=== PATIENT | female | born 1950 | race Caucasian/White ===

== ENCOUNTER 2017-02-07 19:31 | Inpatient (IN) | payer OTHER ==
[2017-02-07] MEDS: D5 NS IV ONE ×2 (19:49)
[2017-02-07] MEDS ORDERED: D5 NS 1,000 ML IV ONE (19:50)
--- NOTE | 2017-02-07 20:01 | PROVIDER DOCUMENTATION ---
HPI-Psychological Disorder - General Chief Complaint: Altered Mental Status Stated Complaint: low blood sugar Time Seen by Provider: 02/07/17 19:40 Source: patient Allergies/Adverse Reactions: Patient Allergies Allergy/AdvReac Type Severity Reaction Status Date / Time No Known Allergies Allergy Verified 02/07/17 21:05 Home Medications: Home Medication List Medication Instructions Recorded Confirmed Last Taken Type Alendronate [Fosamax] 70 mg PO Q7D 06/17/16 02/07/17 01/31/17 09:00 History Aspirin 81 mg PO DAILY 06/17/16 02/07/17 02/07/17 09:00 History Calcium Citrate/Vitamin D3 1 each PO TID 06/17/16 02/07/17 02/07/17 09:00 History [Calcium Citrate - Vit D3 Tab] Carvedilol 25 mg PO BID 06/17/16 02/07/17 02/07/17 09:00 History Ezetimibe [Zetia] 10 mg PO DAILY 06/17/16 02/07/17 02/07/17 09:00 History Glipizide 10 mg PO BID 06/17/16 02/07/17 02/07/17 09:00 History Insulin Glargine [Lantus] 45 unit SUBQ QHS 06/17/16 02/07/17 02/06/17 21:00 History Losartan [Cozaar] 100 mg PO DAILY 06/17/16 02/07/17 02/06/17 09:00 History Nitroglycerin [Nitroglycerin 1 each TD DAILY 06/17/16 02/07/17 02/05/17 09:00 History 0.1MG/Hr] Pioglitazone HCl 45 mg PO DAILY 06/17/16 02/07/17 02/06/17 09:00 History Psyllium Husk [Metamucil] 2 each PO TID 06/17/16 02/07/17 02/06/17 20:00 History Rosuvastatin Calcium [Crestor] 40 mg PO HS 06/17/16 02/07/17 02/06/17 20:00 History Amlodipine Besylate [Norvasc] 5 mg PO DAILY 10/07/16 02/07/17 02/07/17 09:00 History Ranolazine E.r. [Ranexa] 1,000 mg PO BID 02/07/17 02/07/17 02/07/17 09:00 History - History of Present Illness-Psych Nature of Presenting Problem: Pt is a 66 yof who presents to ER via EMS after being found unresponsive at home by family. Per EMS, pt's blood sugar was 31. On exam, pt was moderately diaphoretic, lethargic, and ill-appearance. Onset/Duration: reports: just prior to arrival Timing: reports: improving Severity: reports: severe Psychiatric Complaints: reports: altered mental status, other (unresponsive) Substance Use: reports: none/never Previous psych related hospitalizations?: No Patient arrived by:: EMS called by spouse/family Review of Systems - Adult - REVIEW OF SYSTEMS - ADULT Constitutional: reports: fatique. denies: chills, fever, night sweats, weight gain, weight loss Eyes: reports: no symptoms reported Ears, Nose, Mouth & Throat: reports: no symptoms reported Cardiovascular: reports: syncope. denies: chest pain, edema, heart murmur, irregular heart rate, orthopnea, palpitations, poor circulation, PND Respiratory: denies: chronic cough, cough, dyspnea on exertion, excessive sputum production, hemoptysis, pleurisy, shortness of breath, wheezing Gastrointestinal: reports: no symptoms reported Genitourinary: reports: no symptoms reported Musculoskeletal: reports: no symptoms reported Integumentary: reports: no symptoms reported Neurological: reports: no symptoms reported Psychiatric: reports: no symptoms reported Endocrine: reports: excessive sweating. denies: change in skin pigment, goiter , cold intolerance, heat intolerance, increased hunger, increased thirst, polyuria Hematologic/Lymphatic: reports: no symptoms reported Allergic/Immunologic: reports: no symptoms reported All Other Systems: Reviewed and Negative Past History - Adult - PAST MEDICAL HISTORY-ADULT Review of Records: reports: Nursing Assessment Review, Medications Reviewed Endocrine/Immune: reports: Diabetes Diabetes Type: Type 1 - IMMUNIZATION STATUS Childhood Immunizations: See Nurse Assessment Flu Vaccine: See Nurse Assessment Physical Exam-Psych Focus - Physical Exam-Psych Initial Vital Signs Reviewed: Yes Appearance: appropriate appearance, appropriate insight, neat, no memory impairment, alert, disheveled, lethargic, moderate distress, slow to respond. negative: no apparent distress, denies illness, anxious, combative, impaired insight, impaired recent memory, impaired remote memory, mild distress, severe distress Neurological: alert, calm, assistant front desk manager II-XII nml as tested, oriented x 3, responds to pain, depressed affect. negative: normal mood/affect, agitated, anxious, disoriented x 3, flat, no response to pain, withdraws to pain Respiratory: chest non-tender, lungs clear, normal breath sounds. negative: respiratory distress, decreased breath sounds, accessory muscle use, wheezing Cardiovascular: normal peripheral pulses, regular rate, rhythm. negative: bradycardia, tachycardia, irregularly irregular Abdominal Exam: normal bowel sounds, non tender, soft, no organomegaly, no pulsatile mass. negative: abnormal bowel sounds, distended, tenderness, mass Integumentary: normal color, normal turgor, diaphoresis. negative: warm/dry Progress - PLAN OF CARE/RESULTS Progress/Plan/Lab Results: Vital Signs - 24 hr 02/07/17 02/07/17 02/07/17 19:49 20:24 21:11 Temperature 91.7 F L Pulse Rate 77 70 67 Respiratory 21 19 16 Rate Blood Pressure 130/68 173/70 141/50 O2 Sat by Pulse 98 100 100 Oximetry Orders Category Date Time Status Cardiac Monitoring DIRECTED Care 02/07/17 19:51 Active Finger Stick Blood Sugar (ED) DIRECTED Care 02/07/17 19:51 Active Wilkerson Cath Insertion ORDERED Care 02/07/17 21:01 Active Oxygen Therapy- ED Nursing DIRECTED Care 02/07/17 19:51 Active Saline Loc NOW Care 02/07/17 19:51 Active CHEST-PORTABLE [RAD] Stat Exams 02/07/17 19:51 Taken HEAD W/O CONTRAST [CT] Stat Exams 02/07/17 19:52 Taken ABG [RESP] Routine Lab 02/07/17 20:20 Completed BLOOD CULTURE [BLDCUL] Stat Lab 02/07/17 20:21 Results CBC WITH ELECTRONIC DIFF [HEME] Stat Lab 02/07/17 20:06 Completed CK PROFILE [SP CHEM] Stat Lab 02/07/17 20:06 Completed COMPREHENSIVE METABOLIC PANEL [CHEM] Stat Lab 02/07/17 20:06 Completed LACTATE, PLASMA [CHEM] Stat Lab 02/07/17 20:06 Completed PROTIME WITH INR [COAG] Stat Lab 02/07/17 20:06 Completed PTT [COAG] Stat Lab 02/07/17 20:06 Completed TROPONIN T Stat Lab 02/07/17 20:06 Completed TSH Stat Lab 02/07/17 20:06 Completed URINALYSIS W/POSS RFLX CULT [URINALYSIS] Stat Lab 02/07/17 20:57 Results URINE DRUG SCREEN Stat Lab 02/07/17 20:57 Received URINE MANUAL MICROSCOPIC [URINALYSIS] Stat Lab 02/07/17 20:57 Results CefTRIAXONE 1 GM/NS [Rocephin 1 gm/Ns] 50 ml Med 02/07/17 21:13 Active IV NOW Dextrose 5%-0.9% NaCl Inj [D5 Ns] 1,000 ml Med 02/07/17 19:50 Active IV 50 mls/hr Dextrose 5%-0.9% NaCl Inj [D5 Ns] 250 ml Med 02/07/17 19:49 Active IV 50 mls/hr Dextrose 5%-0.9% NaCl Inj [D5 Ns] 500 ml Med 02/07/17 21:14 Active IV 50 mls/hr Pulse Oximetry Stat Oth 02/07/17 19:51 Active EKG [EKG] Stat Ther 02/07/17 19:37 Ordered EKG [EKG] Stat Ther 02/07/17 19:51 Ordered Laboratory Tests 02/07/17 02/07/17 02/07/17 20:06 20:06 20:06 WBC 8.73 RBC 3.57 L Hgb 10.8 L Hct 34.0 L MCV 95.2 MCH 30.3 MCHC 31.8 L RDW Std Deviation 14.1 Plt Count 372 MPV 9.7 Immature Gran % (Auto) 1.0 H Neut % (Auto) 62.9 Lymph % (Auto) 25.2 Door % (Auto) 7.0 Eos % (Auto) 2.9 Baso % (Auto) 1.0 H Immature Gran # (Auto) 0.09 H Neut # (Auto) 5.49 Lymph # (Auto) 2.20 Door # (Auto) 0.61 H Eos # (Auto) 0.25 Baso # (Auto) 0.09 PT INR PTT (Actin FS) Specimen Type Sample Site pH pCO2 pO2 HCO3 Base Excess Kenneth Test A-a O2 Difference Total Hemoglobin Lactate Liter Flow Blood Gas Modality FiO2 % Sodium 138 Potassium 3.6 Chloride 99 Carbon Dioxide 21 L Anion Gap 18 BUN 27 H Creatinine 1.7 H Estimated GFR/1.73 m2 30 BUN/Creatinine Ratio 16 Glucose 74 Calculated Osmolality 279 Calcium 9.2 Total Bilirubin 0.21 AST 15 ALT 11 Alkaline Phosphatase 88 Creatine Kinase 39 Troponin T Total Protein 7.9 Albumin 3.6 Globulin 4.3 Albumin/Globulin Ratio 0.8 Plasma Lactate TSH 4.37 H Urine Source Urine Color Urine Turbidity Urine pH Ur Specific [place] Urine Protein Ur Glucose (Stick) Ur Ketones (Stick) Urine Blood Urine Nitrite Urine Bilirubin Urobilinogen Dipstick Urine Leukocytes Urine WBC (Auto) Urine RBC (Auto) U Epithel Cells (Auto) Urine Bacteria (Auto) 02/07/17 02/07/17 02/07/17 20:06 20:06 20:06 WBC RBC Hgb Hct MCV MCH MCHC RDW Std Deviation Plt Count MPV Immature Gran % (Auto) Neut % (Auto) Lymph % (Auto) Door % (Auto) Eos % (Auto) Baso % (Auto) Immature Gran # (Auto) Neut # (Auto) Lymph # (Auto) Door # (Auto) Eos # (Auto) Baso # (Auto) PT 10.4 INR 1.02 PTT (Actin FS) 26.9 Specimen Type Sample Site pH pCO2 pO2 HCO3 Base Excess Kenneth Test A-a O2 Difference Total Hemoglobin Lactate Liter Flow Blood Gas Modality FiO2 % Sodium Potassium Chloride Carbon Dioxide Anion Gap BUN Creatinine Estimated GFR/1.73 m2 BUN/Creatinine Ratio Glucose Calculated Osmolality Calcium Total Bilirubin AST ALT Alkaline Phosphatase Creatine Kinase Troponin T < 0.010 Total Protein Albumin Globulin Albumin/Globulin Ratio Plasma Lactate 2.0 TSH Urine Source Urine Color Urine Turbidity Urine pH Ur Specific [place] Urine Protein Ur Glucose (Stick) Ur Ketones (Stick) Urine Blood Urine Nitrite Urine Bilirubin Urobilinogen Dipstick Urine Leukocytes Urine WBC (Auto) Urine RBC (Auto) U Epithel Cells (Auto) Urine Bacteria (Auto) 02/07/17 02/07/17 20:20 20:57 WBC RBC Hgb Hct MCV MCH MCHC RDW Std Deviation Plt Count MPV Immature Gran % (Auto) Neut % (Auto) Lymph % (Auto) Door % (Auto) Eos % (Auto) Baso % (Auto) Immature Gran # (Auto) Neut # (Auto) Lymph # (Auto) Door # (Auto) Eos # (Auto) Baso # (Auto) PT INR PTT (Actin FS) Specimen Type ARTERIAL Sample Site R BRACHIAL pH 7.42 pCO2 42 pO2 82 HCO3 26.8 H Base Excess 2.4 Kenneth Test YES A-a O2 Difference 15.0 Total Hemoglobin < 3.0 L Lactate 1.10 Liter Flow 0.0 Blood Gas Modality ROOM AIR FiO2 % 21.0 Sodium Potassium Chloride Carbon Dioxide Anion Gap BUN Creatinine Estimated GFR/1.73 m2 BUN/Creatinine Ratio Glucose Calculated Osmolality Calcium Total Bilirubin AST ALT Alkaline Phosphatase Creatine Kinase Troponin T Total Protein Albumin Globulin Albumin/Globulin Ratio Plasma Lactate TSH Urine Source CATH Urine Color STRAW Urine Turbidity CLEAR Urine pH 7.0 Ur Specific [place] 1.007 Urine Protein 50 A Ur Glucose (Stick) 100 A Ur Ketones (Stick) NEGATIVE Urine Blood MODERATE A Urine Nitrite NEGATIVE Urine Bilirubin NEGATIVE Urobilinogen Dipstick NORMAL Urine Leukocytes NEGATIVE Urine WBC (Auto) <10 Urine RBC (Auto) TNTC A U Epithel Cells (Auto) <10 Urine Bacteria (Auto) NEGATIVE - EKG 1 Time of EKG reading by physician:: 19:40 EKG Read and Signed by:: Juan Carlos Barbosa EKG Interpretation (*Must complete 3 of following elements*): Abnormal (Lateral infarct, age undetermined; Possible inferior infarct, age undetermined) Rate: 76 Rhythm: NSR - XRAY 1 XRAY: Bilateral XRAY Study: Chest Impression: See EMR Report XRAY Interpretation: Negative - CT/MRI 1 CT Study: Head Impression: See EMR Report CT Results: Negative - CONSULTS/PCP/HOSPITALIST Notification #1 *Consult/PCP/Hospitalist*: Dr. Mancia (hospitalist) Time Discussed: 21:15 Consult Disposition: Admit Departure - Departure Time of Disposition Order: 21:15 DIAGNOSIS: Hypoglycemia Hypothermia Qualifiers: Encounter type: initial encounter Qualified Code(s): T68.XXXA - Hypothermia, initial encounter Altered mental status Qualifiers: Altered mental status type: unspecified Qualified Code(s): R41.82 - Altered mental status, unspecified Disposition: ADMITTED INPATIENT 09 Certified Medical Emergency: Emergent Condition: Stable Referrals: Heber Guerra Jr, MD [Primary Care Provider] - Attestation - Scribe Verification/Attestation Scribe:: Curtis Balderas Acting as Scribe for:: Jua nCarlos Barbosa Scribe documention review:: This chart was documented by a scribe and accurately reflects the service the provider performed and the decisions made by the provider.
[2017-02-07 20:26] LABS: MANUAL DIFF NEEDED? NO
[2017-02-07 20:31] LABS: EOS# 0.25 X1000 (0.0-0.7); EOS% 2.9 % (0.0-10.0); HEMOGLOBIN 10.8 g/dL (12.0-16.0); IMM GRAN# 0.09 X1000 (0.0-0.04); LYMPH% 25.2 % (20.5-51.1); MCH 30.3 PG (27-31); MCHC 31.8 g/dL (33-37); MCV 95.2 FL (81-99); MONO# 0.61 X1000 (0.11-0.59); MPV 9.7 FL (7.4-10.4); NEUT% 62.9 % (42.2-75.2); PLT 372 X1000 (130-400); RBC 3.57 XMIL (4.2-5.4)
[2017-02-07 20:33] LABS: ALLEN TEST YES; BE 2.4 mmoll (-3.0-3.0); BLOOD TYPE ARTERIAL; DRAW SITE R BRACHIAL; PCO2(98.6) 42 mmHg (35-45); PO2(98.6) 82 mmHg (60-100); SAMPLE BLOOD; THB < 3.0 g/dL (11.5-17.4); pH(98.6) 7.42 (7.35-7.45)
[2017-02-07 20:34] LABS: MODALITY ROOM AIR
[2017-02-07 20:47] LABS: ALBUMIN 3.6 g/dL (3.5-5.0); CALCIUM 9.2 mg/dL (8.8-10.2); POTASSIUM 3.6 mmol/L (3.5-5.1); TOTAL BILIRUBIN 0.21 mg/dL (0.20-1.00); TOTAL PROTEIN 7.9 g/dL (6.3-8.3)
[2017-02-07 21:03] LABS: INR 1.02; PROTIME 10.4 Seconds (9.2-11.7); PTT 26.9 Seconds (22.0-36.0)
[2017-02-07 21:11] LABS: URINE CULTURE NEEDED? NO; URINE SOURCE CATH
[2017-02-07] MEDS ORDERED: ROCEPHIN 1 GM/NS 50 ML IV ONE (21:13)
[2017-02-07] MEDS ORDERED: D5 NS 500 ML IV ONE (21:14)
[2017-02-07 21:17] LABS: BILIRUBIN URINE NEGATIVE (NEGATIVE); BLOOD URINE MODERATE (NEGATIVE); COLOR STRAW; GLUCOSE URINE 100 mg/dL (NEGATIVE); LEUKOCYTES URINE NEGATIVE (NEGATIVE); NITRITE URINE NEGATIVE (NEGATIVE); PROTEIN URINE 50 mg/dL (NEGATIVE); SP GRAVITY URINE 1.007; TURBIDITY URINE CLEAR (CLEAR); UROBILINOGEN URINE NORMAL (NORMAL)
[2017-02-07 21:18] LABS: URINE MICRO REVIEW NEEDED? YES
[2017-02-07 21:23] LABS: UR EPITHELIAL CELLS <10 /HPF (<10); URINE BACTERIA NEGATIVE /HPF; URINE RBC TNTC /HPF (<10); URINE WBC <10 /HPF (<10)
[2017-02-07 21:26] LABS: URINE CASTS NONE SEEN; URINE CRYSTALS NONE SEEN; URINE SMALL ROUND CELLS NONE SEEN
[2017-02-07 21:32] LABS: UR AMPHETAMINES QUAL NONE DETECTED (NONE DETECT); UR BARBITUATES QUAL NONE DETECTED (NONE DETECT); UR BENZODIAZEPIN QUAL NONE DETECTED (NONE DETECT); UR CANNABINOIDS QUAL NONE DETECTED (NONE DETECT); UR COCAINE QUAL NONE DETECTED (NONE DETECT); UR METHADONE QUAL NONE DETECTED (NONE DETECT); UR OPIATES QUAL NONE DETECTED (NONE DETECT); UR OXYCODONE QUAL NONE DETECTED (NONE DETECT); UR PCP QUAL NONE DETECTED (NONE DETECT)
[2017-02-07] MEDS: D10W 1,000 ML IV SCH (22:22)
--- NOTE | 2017-02-07 22:40 | Diag Imaging Result Document ---
PROCEDURE NAME: HEAD W/O CONTRAST - 02/07/2017 STUDY: CT brain without. PROTOCOL: Dose reduction protocol. No parenchymal hemorrhage. No epidural or subdural hematoma. No subarachnoid hemorrhage. No mass identified on this noncontrasted exam. No hydrocephalus. There are chronic microvascular ischemic changes. IMPRESSION: 1. No hemorrhage. 2. Chronic microvascular ischemic changes. A preliminary report was given at 8:45 p.m.
--- NOTE | 2017-02-07 22:54 | HISTORY AND PHYSICAL ---
CHIEF COMPLAINT: Confusion, mental status changes. HISTORY OF PRESENTING ILLNESS: A 66-year-old female with a history of diabetes mellitus type 2, hypertension and coronary disease apparently was found by family confused and somewhat lethargic. She was brought to the emergency department where she was found to be severely hypoglycemic. She was treated and then put on D5 and her mental status somewhat improved. However she still was hypothermic and warming blanket was placed and due to her presenting symptoms, it was thought that she would need hospitalization for further management. At the time of my examination she was more alert. She had denied having any headache, fever, chills, chest pain, shortness of breath, hemoptysis or any weight changes. The patient apparently is on insulin and also oral hypoglycemics to manage her diabetes. PAST MEDICAL HISTORY: Includes diabetes mellitus type 2, hypertension, rheumatoid arthritis, hyperlipidemia, coronary disease. PAST SURGICAL HISTORY: Cholecystectomy, right knee surgery, coronary stent. ALLERGIES: No known drug allergies. CURRENT MEDICATIONS: As listed in MAR. SOCIAL HISTORY: She denies any history of smoking, alcohol or illicit drug use. FAMILY HISTORY: Positive for coronary disease in mother and father. REVIEW OF SYSTEMS: Twelve point review of systems listed as in HPI. Other systems negative. PHYSICAL EXAMINATION: GENERAL: Cooperative, friendly female. She is resting comfortably now. VITAL SIGNS: Temperature 91.7 degrees, pulse 77, respiration 21, blood pressure 130/68. She is saturating 97% now. HEENT: Atraumatic, normocephalic. Extraocular movements intact. PERRLA. NECK: No masses. CHEST: Clear to auscultation. CARDIOVASCULAR: Regular rate and rhythm. ABDOMEN: Soft. Positive bowel sounds. EXTREMITIES: No edema. NEURO: She is awake, alert, oriented x2. : No bladder distention. SKIN: Warm. LABORATORIES AND STUDIES: WBCs 8.73, hemoglobin 10.8, hematocrit 34.0, platelets 372,000. Sodium 138, potassium 3.6, chloride 99, CO2 21, BUN is 27, creatinine is 1.7, glucose is 74. UA shows moderate blood. ASSESSMENT: A 66-year-old female with a history of diabetes mellitus type 2, hypertension, coronary disease, was found by family members confused and lethargic, is brought to the emergency department where she was found to be hypoglycemic. She was started on D10 and put on a warming blanket due to hypothermia and she will need hospitalization for further management. 1. Altered mental status secondary to hypoglycemia. 2. Symptomatic hypoglycemia. 3. Hypothermia. 4. Diabetes mellitus type 2. 5. Acute Kidney Injury 6. Suspected UTI PLAN: 1. Will admit patient to ICU. 2. Continue with D10. Neuro checks 3. Monitor blood glucose closely. 4. Continue patient on warming blanket. 5. Will monitor blood pressure closely. 6. Monitor renal function 6. Patient was started on empiric antibiotics for suspected UTI. 7. Put patient on DVT prophylaxis with SCDs. 8. We will continue to follow and reassess. NANCY
[2017-02-08 06:30] LABS: MANUAL DIFF NEEDED? NO
[2017-02-08 06:37] LABS: BASO% 0.6 % (0.0-0.8); EOS% 2.1 % (0.0-10.0); HEMATOCRIT 28.9 % (37.0-47.0); HEMOGLOBIN 9.4 g/dL (12.0-16.0); IMM GRAN# 0.07 X1000 (0.0-0.04); IMM GRAN% 0.7 % (0.0-0.5); LYMPH# 1.92 X1000 (1.2-3.4); LYMPH% 20.3 % (20.5-51.1); MCH 30.4 PG (27-31); MCHC 32.5 g/dL (33-37); MCV 93.5 FL (81-99); MONO# 0.59 X1000 (0.11-0.59); MONO% 6.2 % (1.7-9.3); MPV 9.6 FL (7.4-10.4); NEUT% 70.1 % (42.2-75.2); PLT 361 X1000 (130-400); RBC 3.09 XMIL (4.2-5.4)
[2017-02-08] MEDS ORDERED: FOSAMAX PO SCH (07:00)
[2017-02-08] MEDS ORDERED: DUONEB (A & A) INH PRN (09:25)
[2017-02-08] MEDS: CALTRATE 600 + D PO SCH ×3 (09:54→18:51)
[2017-02-08] MEDS: COZAAR PO SCH (09:54)
[2017-02-08] MEDS: ASPIRIN PO SCH (09:54)
[2017-02-08] MEDS: RANEXA PO SCH ×2 (09:55→20:41)
[2017-02-08] MEDS: NORVASC PO SCH (09:55)
[2017-02-08] MEDS: ZETIA PO SCH (09:55)
[2017-02-08] MEDS: PROTONIX IV SCH (11:08)
--- NOTE | 2017-02-08 11:48 | Diag Imaging Result Document ---
PROCEDURE NAME: CHEST-PORTABLE - 02/07/2017 PORTABLE CHEST: COMPARISON: No comparison exam. FINDINGS: Heart size appears mildly enlarged. The lungs appear clear. There is no pleural effusion or pneumothorax identified. IMPRESSION: Mild cardiomegaly. No other evidence of acute disease.
[2017-02-08] MEDS: ROCEPHIN 1 GM/NS 50 ML IV SCH ×2 (12:15→23:38)
[2017-02-08] MEDS: D10W 1,000 ML IV SCH ×2 (13:47→23:38)
--- NOTE | 2017-02-08 15:02 | PROGRESS NOTE ---
DATE: 02/08/2017 SUBJECTIVE: The patient is feeling better. She tells me that when the paramedics got to her house her blood sugar was 30. She admits that she has not been taking her medications regularly, but she did yesterday. I suspect what has happened is that when she has come to the office and tells me she is taking her medicines, we have adjusted her insulin and other oral agents based on the numbers that we have been getting, and now that she is taking her medicine, the dosage is probably wrong. I have explained to her the importance of that. She was also hypothermic with a temperature just a little over 91 degrees Fahrenheit. I am not sure why she was hypothermic, but she has had a warming blanket and is much better now. OBJECTIVE: Vital Signs: Initial temperature was 91.7 degrees Fahrenheit and it slowly came up to 94.7 and 97.1, and the last temperature check was 98 degrees. Her blood pressure is 134/50, respirations 20, pulse 96. HEENT: She is normocephalic. EOMs intact. PERRLA. Throat clear. Lungs: Clear to auscultation and percussion, without rhonchi, rales, or wheezes. Heart: Regular rate rhythm, without murmurs, gallops, or friction rubs. Abdomen: Soft, with active bowel sounds. No organomegaly or tenderness. Neurological: Intact grossly at this time. When the paramedics first got to her, she was confused, with altered mental status due to her hypoglycemia. DIAGNOSTIC TESTS: Blood cultures have been drawn. The patient was given Rocephin initially, but just 1 dose. She is not showing any other signs of sepsis at this time other than the hypothermia. Chest x-ray report is pending. Urine did have a good bit of blood, but no pus. Urine was not cultured. ASSESSMENT: 1. Altered mental status. 2. Hypoglycemia. 3. Hypothermia. 4. Adult-onset diabetes mellitus. PLAN: Since we are still waiting on blood cultures, I will go ahead and continue IV antibiotics until we get results. We will restart antibiotics. We will await cultures. We will otherwise monitor.
[2017-02-08 15:24] LABS: URINE MICRO REVIEW NEEDED? NO; URINE SOURCE CATH
[2017-02-08 15:28] LABS: BILIRUBIN URINE NEGATIVE (NEGATIVE); BLOOD URINE MODERATE (NEGATIVE); COLOR YELLOW; GLUCOSE URINE NEGATIVE (NEGATIVE); LEUKOCYTES URINE SMALL (NEGATIVE); NITRITE URINE NEGATIVE (NEGATIVE); PROTEIN URINE TRACE mg/dL (NEGATIVE); SP GRAVITY URINE 1.008; TURBIDITY URINE CLEAR (CLEAR); UROBILINOGEN URINE NORMAL (NORMAL)
[2017-02-08 15:29] LABS: UR EPITHELIAL CELLS <10 /HPF (<10); URINE BACTERIA NEGATIVE /HPF; URINE CULTURE NEEDED? YES; URINE RBC TNTC /HPF (<10)
[2017-02-08] MEDS: HUMULIN R SUBQ SCH ×2 (18:54→20:41)
[2017-02-08] MEDS: CRESTOR PO SCH (20:41)
[2017-02-09] MEDS ORDERED: FOSAMAX PO SCH (06:00)
[2017-02-09] MEDS: PROTONIX IV SCH (06:09)
[2017-02-09] MEDS: SODIUM CHLORIDE 0.9% INJ SCH (06:09)
[2017-02-09] MEDS: HUMULIN R SUBQ SCH ×5 (07:03→21:03)
[2017-02-09] MEDS: NORVASC PO SCH (10:06)
[2017-02-09] MEDS: COZAAR PO SCH (10:06)
[2017-02-09] MEDS: CALTRATE 600 + D PO SCH ×3 (10:06→21:03)
[2017-02-09] MEDS: RANEXA PO SCH ×2 (10:06→21:03)
[2017-02-09] MEDS: ZETIA PO SCH (10:06)
[2017-02-09] MEDS: ASPIRIN PO SCH (10:06)
--- NOTE | 2017-02-09 13:22 | PROGRESS NOTE ---
DATE: 02/09/2017 SUBJECTIVE: The patient says she is hurting. She tells me now that she hurt her back in 10/2016 but has not told me about it. She has been sitting a lot because her back has been hurting off and on. Now she has some decubitus ulcers or at least some breakdown of the skin on her back and buttocks. We will get a Wound Care nurse to look at this. She also admits now that most of the time she does not take her medications, and I suspect that what happened is she finally did take her oral medication and that is what caused the hypoglycemia. I have had long talks with her in the past at the office about taking her medications properly, and she will say that she will and then she does not. She has not had her back evaluated. OBJECTIVE: Vital signs: Blood pressure is 143/48, respirations 16, pulse 80, temperature 98.5 degrees Fahrenheit. HEENT: She is normocephalic and atraumatic. PERRLA. Throat is clear. Lungs: Clear to auscultation and percussion without rhonchi, rales or wheezes. Heart: Regular rate and rhythm without murmur, gallops or friction rubs. Abdomen: Soft with active bowel sounds. No organomegaly or tenderness. Neurologic: Intact grossly. The patient is alert at this time. DIAGNOSTIC DATA: Repeat urinalysis shows 10 to 20 WBCs on a catheterized urine specimen, so she does have a UTI. ASSESSMENT: 1. Altered mental status. 2. Hypoglycemia, resolved. 3. Hypothermia, resolved. 4. Adult-onset diabetes mellitus. 5. Noncompliance. 6. Low back pain. 7. Skin breakdown. PLAN: We will get the Wound Care nurse to see. We will get x-ray of LS spine. Repeat urinalysis tomorrow.
[2017-02-09 13:45] LABS: URINE MICRO REVIEW NEEDED? NO; URINE SOURCE CATH
[2017-02-09 13:51] LABS: BILIRUBIN URINE NEGATIVE (NEGATIVE); BLOOD URINE MODERATE (NEGATIVE); COLOR YELLOW; GLUCOSE URINE >1000 mg/dL (NEGATIVE); LEUKOCYTES URINE NEGATIVE (NEGATIVE); NITRITE URINE NEGATIVE (NEGATIVE); PROTEIN URINE TRACE mg/dL (NEGATIVE); TURBIDITY URINE CLEAR (CLEAR); UR EPITHELIAL CELLS <10 /HPF (<10); URINE BACTERIA NEGATIVE /HPF; URINE RBC TNTC /HPF (<10); URINE WBC <10 /HPF (<10); UROBILINOGEN URINE NORMAL (NORMAL)
[2017-02-09] MEDS: ROCEPHIN 1 GM/NS 50 ML IV SCH (14:15)
[2017-02-09] MEDS: D10W 1,000 ML IV SCH (14:15)
[2017-02-09] MEDS: NORCO-5 PO PRN (14:20)
--- NOTE | 2017-02-09 17:45 | Diag Imaging Result Document ---
PROCEDURE NAME: LUMBAR SPINE 2-VIEWS - 02/09/2017 LUMBAR SPINE AP AND LATERAL, 2 VIEWS: FINDINGS: There is mild scoliosis. There are mild compression fractures to the L2 and L3 vertebra. The L2 vertebra is between 30 and 50% where as the L3 vertebra is approximately 30% compression fracture. There are degenerative bone spurs. Moderate atherosclerosis. IMPRESSION: 1. Mild scoliosis with moderate degenerative changes. 2. Compression fractures to the L2 and L3 vertebra which were present on a recent MRI of the lumbar spine from 01/20/2017 and are unchanged.
[2017-02-09] MEDS: CRESTOR PO SCH (21:03)
[2017-02-10] MEDS: ROCEPHIN 1 GM/NS 50 ML IV SCH ×3 (00:32→23:58)
[2017-02-10] MEDS: NORCO-5 PO PRN ×2 (00:35→19:29)
[2017-02-10] MEDS: D10W 1,000 ML IV SCH ×2 (03:30→17:32)
[2017-02-10] MEDS: SODIUM CHLORIDE 0.9% INJ SCH (06:08)
[2017-02-10] MEDS: HUMULIN R SUBQ SCH ×5 (06:09→23:59)
[2017-02-10] MEDS: PROTONIX IV SCH (06:09)
[2017-02-10 07:03] LABS: MANUAL DIFF NEEDED? NO
[2017-02-10 07:28] LABS: BASO% 1.1 % (0.0-0.8); EOS# 0.25 X1000 (0.0-0.7); HEMATOCRIT 28.1 % (37.0-47.0); HEMOGLOBIN 8.9 g/dL (12.0-16.0); IMM GRAN# 0.04 X1000 (0.0-0.04); IMM GRAN% 0.5 % (0.0-0.5); MCH 29.9 PG (27-31); MCHC 31.7 g/dL (33-37); MCV 94.3 FL (81-99); MONO# 0.68 X1000 (0.11-0.59); MONO% 8.2 % (1.7-9.3); MPV 9.6 FL (7.4-10.4); NEUT% 64.2 % (42.2-75.2); PLT 301 X1000 (130-400); RBC 2.98 XMIL (4.2-5.4)
[2017-02-10 08:31] LABS: CALCIUM 8.7 mg/dL (8.8-10.2); POTASSIUM 4.5 mmol/L (3.5-5.1)
[2017-02-10] MEDS: RANEXA PO SCH ×2 (08:57→23:58)
[2017-02-10] MEDS: CALTRATE 600 + D PO SCH ×3 (08:57→23:58)
[2017-02-10] MEDS: ASPIRIN PO SCH (08:57)
[2017-02-10] MEDS: ZETIA PO SCH (08:57)
[2017-02-10] MEDS: COZAAR PO SCH (08:57)
[2017-02-10] MEDS: NORVASC PO SCH (08:57)
--- NOTE | 2017-02-10 09:45 | PROGRESS NOTE ---
DATE: 02/10/2017 SUBJECTIVE: The patient says that she still hurts in her back. The injury actually occurred last October. We did an x-ray of her back and she shows old compression fractures at L2 and L3. Actually we had done an MRI scan of her back which showed the compression fractures about 3 weeks ago from the office. She did not remind me of that but I found it in the old notes. She says now she can barely get up and get around. Otherwise she is feeling better. OBJECTIVE: Vital signs: Blood pressure 140/49, respirations 18, pulse 76, temperature 98.8 degrees Fahrenheit. HEENT: She is normocephalic. EOMs intact. PERRLA. Throat clear. Lungs: Clear to auscultation and percussion without rhonchi, rales, or wheezes. Heart: Regular rate and rhythm without murmurs, gallops, or friction rubs. Abdomen: Soft. Active bowel sounds. No organomegaly or tenderness. The patient does complain of low back pain. Neurological: Intact grossly. ASSESSMENT: 1. Hypoglycemia. 2. Altered mental status. 3. Hypothermia, now resolved. 4. Probable urinary tract infection. Note that urine culture was not ordered initially and patient did have blood cultures that were negative. Placed her on antibiotics. I got the culture I believe after the antibiotics unfortunately and culture is negative. She did have some pyuria that has since resolved. 5. Adult-onset diabetes mellitus. 6. Low back pain. PLAN: Since the patient is complaining of so much back pain today, we will get Physical therapy to work with her. If we can get her where she is up and walking, possibly discharge tomorrow. This will give her 1 more days' worth of antibiotics given IV. We will DC the Wilkerson catheter.
[2017-02-10] MEDS: ACTOS PO SCH (12:22)
[2017-02-10] MEDS: ZOFRAN ODT PO PRN (17:47)
[2017-02-11] MEDS: CRESTOR PO SCH ×2 (00:01→21:52)
[2017-02-11] MEDS: NORCO-5 PO PRN ×2 (03:39→15:47)
[2017-02-11] MEDS: SODIUM CHLORIDE 0.9% INJ SCH (06:12)
[2017-02-11] MEDS: PROTONIX IV SCH (06:12)
[2017-02-11] MEDS: HUMULIN R SUBQ SCH ×4 (06:13→21:54)
[2017-02-11] MEDS: D10W 1,000 ML IV SCH ×4 (06:19→23:39)
[2017-02-11 07:01] LABS: MANUAL DIFF NEEDED? NO
[2017-02-11 07:16] LABS: BASO% 0.6 % (0.0-0.8); EOS# 0.28 X1000 (0.0-0.7); EOS% 3.5 % (0.0-10.0); HEMATOCRIT 27.9 % (37.0-47.0); HEMOGLOBIN 8.9 g/dL (12.0-16.0); IMM GRAN# 0.04 X1000 (0.0-0.04); IMM GRAN% 0.5 % (0.0-0.5); LYMPH# 1.55 X1000 (1.2-3.4); LYMPH% 19.4 % (20.5-51.1); MCH 29.9 PG (27-31); MCHC 31.9 g/dL (33-37); MCV 93.6 FL (81-99); MONO# 0.83 X1000 (0.11-0.59); MONO% 10.4 % (1.7-9.3); MPV 9.7 FL (7.4-10.4); NEUT% 65.6 % (42.2-75.2); PLT 312 X1000 (130-400); RBC 2.98 XMIL (4.2-5.4)
[2017-02-11 07:23] LABS: CALCIUM 9.3 mg/dL (8.8-10.2); POTASSIUM 4.2 mmol/L (3.5-5.1)
[2017-02-11] MEDS: CALTRATE 600 + D PO SCH ×4 (08:47→16:45)
[2017-02-11] MEDS: RANEXA PO SCH ×2 (08:47→21:52)
[2017-02-11] MEDS: COZAAR PO SCH (08:47)
[2017-02-11] MEDS: ASPIRIN PO SCH (08:47)
[2017-02-11] MEDS: ZETIA PO SCH (08:47)
[2017-02-11] MEDS: NORVASC PO SCH (08:47)
[2017-02-11] MEDS: ACTOS PO SCH (08:47)
--- NOTE | 2017-02-11 09:14 | PROGRESS NOTE ---
DATE: 02/11/2017 SUBJECTIVE: Patient still feels tired. Still hurting in her back. She did have a little bleeding from her decubitus ulcers, though they are fairly superficial. Her hemoglobin did drop from 10.8 down to 8.9. Some of this could be delusional. Her hypothermia has resolved. Her hypoglycemia has resolved. Her back pain has continued. She did have compression fractures at L2 and L3. OBJECTIVE: Vital Signs: Blood pressure 133/42, respirations 18, pulse 77, temperature 97.8 degrees Fahrenheit. HEENT: She is normocephalic. EOMs intact. PERRLA. Throat clear. Lungs: Clear to auscultation and percussion without rhonchi, rales, or wheezes. Heart: Regular rate and rhythm without murmurs, gallops, or friction rubs. Abdomen: Soft. Active bowel sounds. No organomegaly or tenderness. The patient does complain of her back pain. Skin: Her sacrum does show a couple of superficial decubital ulcers. I have talked with wound care nurse about this. Has already had some treatment. Musculoskeletal: Will be getting her up for physical therapy today as well. The patient states that she has just been sitting around because her back has been hurting. She is not having any pain go down her legs. I do not think that she needs kyphoplasty at this point. ASSESSMENT: 1. Altered mental status, now resolved. 2. Hypothermia, now resolved. 3. Hypoglycemia. 4. Low back pain with compression fractures of the back. 5. Decubitus ulcers. 6. Adult-onset diabetes mellitus. PLAN: We will have physical therapy work with her today. If she does well with that will plan on discharge tomorrow and will get physical therapy and home health care to see her and to work with her decubitus ulcers. Will try to get her a pillow to sit on that will help protect the decubitus ulcers.
[2017-02-11] MEDS: ROCEPHIN 1 GM/NS 50 ML IV SCH ×3 (10:56→23:33)
[2017-02-12] MEDS: NORCO-5 PO PRN ×3 (00:07→21:31)
[2017-02-12] MEDS: ZOFRAN ODT PO PRN ×2 (03:45→10:14)
[2017-02-12] MEDS: SODIUM CHLORIDE 0.9% INJ SCH (05:35)
[2017-02-12] MEDS: PROTONIX IV SCH (05:35)
[2017-02-12] MEDS: D10W 1,000 ML IV SCH ×3 (05:51→13:52)
[2017-02-12] MEDS: HUMULIN R SUBQ SCH ×4 (06:22→23:21)
[2017-02-12 06:43] LABS: MANUAL DIFF NEEDED? NO
[2017-02-12 06:50] LABS: BASO% 0.5 % (0.0-0.8); EOS# 0.24 X1000 (0.0-0.7); EOS% 3.1 % (0.0-10.0); HEMATOCRIT 29.4 % (37.0-47.0); HEMOGLOBIN 9.4 g/dL (12.0-16.0); IMM GRAN# 0.03 X1000 (0.0-0.04); IMM GRAN% 0.4 % (0.0-0.5); LYMPH# 1.46 X1000 (1.2-3.4); LYMPH% 18.9 % (20.5-51.1); MCH 29.8 PG (27-31); MCV 93.3 FL (81-99); MONO# 0.78 X1000 (0.11-0.59); MONO% 10.1 % (1.7-9.3); MPV 9.4 FL (7.4-10.4); PLT 282 X1000 (130-400); RBC 3.15 XMIL (4.2-5.4)
[2017-02-12 07:03] LABS: CALCIUM 9.6 mg/dL (8.8-10.2); POTASSIUM 4.7 mmol/L (3.5-5.1)
[2017-02-12] MEDS ORDERED: DULCOLAX PR ONE (08:40)
--- NOTE | 2017-02-12 08:51 | PROGRESS NOTE ---
DATE: 02/12/2017 SUBJECTIVE: The patient does not feel well at all. She has been nauseated. She thinks that it is from the Actos that I started her on. It is unusual to be nauseated from the Actos but we will stop it. She did get up and walk with physical therapy yesterday but then the nausea got worse. She says she has been throwing up. She will barely answer my questions at this time. I think it is just because of her nausea. She has been given some Zofran. She has also been on some pain killer. She says she has not had trouble with those in the past, even though they are more likely to cause nausea. We will just have to try to use a different medication for her diabetes. I was hoping that we could use something that would not cause hypoglycemia. I do not have her on metformin because she does have some renal insufficiency. OBJECTIVE: Vital Signs: Blood pressure 115/63, respirations 16, pulse 72, temperature 97.5 degrees Fahrenheit. HEENT: She is normocephalic. EOMs intact. PERRLA. Throat clear. Lungs: Clear to auscultation and percussion without rhonchi, rales, or wheezes. Heart: Regular rate and rhythm without murmurs, gallops, or friction rubs. Abdomen: Soft. Active bowel sounds. No organomegaly or tenderness. She says she has had no abdominal pain. Neurologic: Examination intact grossly except she just does not feel well at all. ASSESSMENT: 1. Altered mental status. 2. Hypothermia, now resolved. 3. Hypoglycemia, now resolved. 4. Diabetes mellitus. 5. Decubitus ulcers of her sacrum. 6. Patient also now is having nausea that is intractable. PLAN: We will stop her Actos. Please see orders.
[2017-02-12] MEDS: CALTRATE 600 + D PO SCH ×3 (09:20→18:09)
[2017-02-12] MEDS: NORVASC PO SCH (09:24)
[2017-02-12] MEDS: COZAAR PO SCH (09:55)
[2017-02-12] MEDS: RANEXA PO SCH ×2 (09:56→21:31)
[2017-02-12] MEDS: ASPIRIN PO SCH (09:56)
[2017-02-12] MEDS: ZETIA PO SCH (09:57)
[2017-02-12 10:35] LABS: ALBUMIN 3.3 g/dL (3.5-5.0); CALCIUM 9.2 mg/dL (8.8-10.2); POTASSIUM 4.5 mmol/L (3.5-5.1); TOTAL BILIRUBIN 0.27 mg/dL (0.20-1.00)
--- NOTE | 2017-02-12 10:47 | Diag Imaging Result Document ---
PROCEDURE NAME: FLAT/UPRIGHT ABD/1 VIEW CHEST - 02/12/2017 FRONTAL CHEST X-RAY AND 2 VIEWS OF THE ABDOMEN: COMPARISON: 02/07/2017. FINDINGS: There is severe cardiomegaly that may have worsened since the prior exam. There is a trace right pleural effusion, new from prior. Pulmonary vascularity is mildly distended. No infiltrates or definite edema. There are cholecystectomy clips. There is mild constipation. No bowel obstruction or free air. IMPRESSION: 1. Worsening cardiomegaly. Trace right pleural effusion. Pulmonary vascular congestion. 2. Constipation.
--- NOTE | 2017-02-12 10:51 | Diag Imaging Result Document ---
PROCEDURE NAME: US ABDOMEN-COMPLETE - 02/12/2017 ULTRASOUND ABDOMEN COMPLETE: COMPARISON: CT 01/21/2014. FINDINGS: Stable findings of prior cholecystectomy. The common bile duct is, otherwise, normal measuring about 9 mm. There is some fullness of the left renal collecting system, stable from the prior CT. The right kidney is normal. Renal sizes are normal. The liver, pancreas, and spleen are normal. Aorta, IVC, and main portal vein are patent. IMPRESSION: No specific acute disease or change from prior.
[2017-02-12] MEDS: CRESTOR PO SCH (21:31)
[2017-02-13] MEDS: D10W 1,000 ML IV SCH ×3 (01:19→13:56)
[2017-02-13] MEDS: HUMULIN R SUBQ SCH ×4 (06:01→21:56)
[2017-02-13] MEDS: PROTONIX IV SCH (06:04)
[2017-02-13] MEDS: SODIUM CHLORIDE 0.9% INJ SCH (06:05)
[2017-02-13] MEDS ORDERED: MILK OF MAGNESIA PO ONE (08:39)
--- NOTE | 2017-02-13 09:16 | PROGRESS NOTE ---
DATE: 02/13/2017 SUBJECTIVE: The patient is feeling a little bit better. She is not as nauseated today. She threw up about 3 times over the last couple of days and thought it was from her Actos, but she only had 1 dose of Actos and she still had nausea 48 hours later, so I am not sure it was the Actos that caused her problem. It should be noted that because of her nausea, we did an ultrasound of her abdomen, which was essentially normal, and we did a flat plate upright and chest x-ray, and she did show some increased stool and has not had a bowel movement since last Friday. Her chest x-ray on admission indicated mild cardiomegaly, but it was an AP view. Chest x-ray done yesterday was also an AP view, but was read as perhaps some early pulmonary edema and worsening of the cardiomegaly. Then, it was put in the dictation that it was severe cardiomegaly. I called the radiologist and talked with him, and he said that he did not really think it was severe cardiomegaly, but that it is hard to tell because it was an AP view. He thought that there might be some mild pulmonary congestion, but did not see any pulmonary edema, so there is a difference of opinion on the reading of this x-ray. PHYSICAL EXAMINATION: Vital Signs: Blood pressure is 121/42, respirations 16, pulse 78, temperature 98 degrees Fahrenheit. HEENT: Normocephalic. EOMs intact. PERRLA. Throat clear. Lungs: Clear to auscultation except in the right base where there are a few rales. Heart: Regular rate and rhythm without murmurs, gallops, or friction rubs. The patient denies any chest pains. Abdomen: Soft, active bowel sounds. No organomegaly or tenderness. Neurological: Exam intact grossly. LABORATORY DATA: Blood sugar yesterday was 190. White count 7710, hemoglobin 9.4. This was all yesterday. She does have some hyponatremia with a sodium down to 127. This was also done yesterday. Creatinine was 1.9, potassium 4.5, chloride 89. This may be from her vomiting. ASSESSMENT: 1. Altered mental status, now improved. 2. Hypothermia, now resolved. 3. Hypoglycemia, now resolved. 4. Diabetes mellitus. 5. Decubitus ulcers of her sacrum. 6. Intractable nausea, now improved. 7. Question of cardiomegaly and pulmonary edema. PLAN: We will get an echocardiogram, do a PA and lateral chest x-ray. We will do cardiac enzymes. She has been constipated, so we will give her 30 mL of milk of magnesia. We will consider consultation with Cardiology if led by her studies. If these come back negative, then we may not have to have a consult.
[2017-02-13 09:37] LABS: ALBUMIN 3.1 g/dL (3.5-5.0); CALCIUM 8.8 mg/dL (8.8-10.2); POTASSIUM 4.5 mmol/L (3.5-5.1); TOTAL BILIRUBIN 0.31 mg/dL (0.20-1.00)
[2017-02-13] MEDS: RANEXA PO SCH ×2 (09:45→21:56)
[2017-02-13] MEDS: COZAAR PO SCH (09:45)
[2017-02-13] MEDS: ASPIRIN PO SCH (09:45)
[2017-02-13] MEDS: NORCO-5 PO PRN (09:45)
[2017-02-13] MEDS: CALTRATE 600 + D PO SCH ×3 (09:45→17:47)
[2017-02-13] MEDS: NORVASC PO SCH (09:45)
[2017-02-13] MEDS: ZETIA PO SCH (09:47)
--- NOTE | 2017-02-13 09:58 | Diag Imaging Result Document ---
PROCEDURE NAME: CHEST-2 VIEWS - 02/13/2017 PA AND LATERAL RADIOGRAPH OF THE CHEST: COMPARISON: 02/12/2017. FINDINGS: There is stable minimal blunting of the right costophrenic angle suggesting a trace effusion. There are no new consolidations. The heart appears much less prominent on this current PA radiograph as opposed to the previous AP radiographs owing to less magnification. There is still [id number] prominence of the cardiac silhouette indicating cardiomegaly. This cardiomegaly has probably been stable since the earliest available prior radiograph dated 02/07/2017 given the differences in magnification. In fact, on a prior CT of the abdomen and pelvis dated 01/21/2014, moderate cardiomegaly can also be appreciated. This is assumed to be chronic. The central vasculature is also unremarkable on this study. IMPRESSION: 1. [id number] cardiomegaly. The size of the heart appears less prominent than the previous studies given the superior PA technique with less magnification. 2. Otherwise, stable chest.
--- NOTE | 2017-02-13 11:23 | EKG Report ---
Test Performed on : 02/13/2017 10:45:30 AM Test Reason : cardiomegaly Blood Pressure : / mmHG Vent. Rate : 076 BPM Atrial Rate : 076 BPM P-R Int : 184 ms QRS Dur : 104 ms QT Int : 418 ms P-R-T Axes : 055 047 050 degrees QTc Int : 470 ms Normal sinus rhythm. Lateral infarct (cited on or before 07-FEB-2017) Abnormal ECG When compared with ECG of 07-FEB-2017 19:40, No significant change was found Confirmed by Masha EARLY, Kenneth Jeronimo ([id number]) on 02/15/2017 1:14:41 PM
--- NOTE | 2017-02-13 15:43 | ECHO REPORT ---
ORDER DATE: 02/13/2017 INTERPRETING PHYSICIAN: Dr. Otis Treviño ECHOCARDIOGRAPHIC MEASUREMENTS: Interventricular septum: 1.0 cm. Left ventricular posterior wall: 1.0 cm. Diastolic diameter: 5.3 cm. Left atrium: 4.0 cm. Aortic root: 3.6 cm. SUMMARY OF THE 2-DIMENSIONAL IMAGIN. Aortic valve leaflets are trileaflet, mildly sclerosed, opening normally. Mitral valve was normal. Tricuspid valve was normal. Pulmonic valve was normal. 2. Normal left ventricular cavity size. Estimated ejection fraction of 65%. 3. Peak velocity across the aortic valve less than 2 m/sec. There is no aortic stenosis. There is mild aortic regurgitation. 4. There is mild mitral regurgitation. 5. Mild tricuspid regurgitation. Peak velocity across the tricuspid valve was 3 m/sec. There is trace pulmonary regurgitation. 6. There is no pericardial effusion or obvious intracardiac mass or thrombus seen.
[2017-02-13] MEDS: CRESTOR PO SCH ×2 (21:56→22:11)
[2017-02-14] MEDS: NORCO-5 PO PRN (03:07)
[2017-02-14] MEDS: PROTONIX IV SCH (06:43)
[2017-02-14] MEDS: HUMULIN R SUBQ SCH ×2 (06:44→12:48)
[2017-02-14] MEDS: COZAAR PO SCH (08:06)
[2017-02-14] MEDS: CALTRATE 600 + D PO SCH ×2 (08:07→13:06)
[2017-02-14] MEDS: NORVASC PO SCH (08:07)
[2017-02-14] MEDS: RANEXA PO SCH (08:07)
[2017-02-14] MEDS: ASPIRIN PO SCH (08:07)
[2017-02-14] MEDS: ZETIA PO SCH (08:07)
[2017-02-14 08:11] VITALS: BP 136/50
--- NOTE | 2017-02-15 08:23 | DISCHARGE SUMMARY ---
ADMISSION DATE: 02/07/2017 DISCHARGE DATE: 02/14/2017 FINAL DIAGNOSES: 1. Altered mental status, now improved. 2. Hypothermia, now resolved. 3. Hypoglycemia, now resolved. 4. Adult-onset diabetes mellitus. 5. Decubitus ulcers over sacrum. 6. Intractable nausea, now improved. 7. Question of cardiomegaly and pulmonary edema. It should be noted that now we feel like she has had some mild cardiomegaly that is of no consequence. Echocardiogram actually was normal with a normal ejection fraction. 8. Mild hyponatremia. 9. Mild hypochloremia. 10. Compression fractures with low back pain DISCHARGE MEDICATIONS: Discharge medications will generally be her home medications, but she will stop her insulin at this time. We will have to see her back in the office quickly to adjust her medications for her diabetes. PRESENT ILLNESS: The patient came in after having a blood sugar of 30 at home. She was brought to the hospital and given dextrose in the emergency room. She was found to be hypothermic with a temperature of 91.7 degrees Fahrenheit. At this point, we still do not know why she became hypothermic. She had not been outside for any prolonged amount of time. The patient got to feeling better after we got her blood sugars up, but she started complaining of her back pain. She has had compression fractures at L2 and L3 previously evaluated but said it started hurting worse. She said that in October she had bent over and got pain. We had actually done an MRI scan on her a few weeks ago and it did not show any cord compression or impingement. Apparently, when the nurses were moving her in the bed, she rolled over and her back started hurting. She started complaining of pain. I did do another x-ray of her back, and it did not show any changes. Back pain has gotten better. I was going to place her on Actos for her diabetes, but as she got nauseated after the Actos and stayed nauseated for a couple of days. I am not sure the Actos caused all that but she thinks that it did. She was also getting some narcotic for pain, but she says she has had that in the past without difficulty. Because of her nausea, we did an abdominal flat plate and upright with a chest x-ray, and the chest x-ray was read as severe cardiomegaly worsening since the previous films. It was not an AP view, so I talked with cardiology about this, and they were not quite as sure about it at that point, so I did an echocardiogram that was essentially normal. They compared a PA chest x-ray and lateral to the CT scan she had an 2013 and said there had been no change and considered it [id number] cardiomegaly/ the echocardiogram did not really show any cardiomegaly of any consequence. She does have two superficial decubitus ulcers near her sacrum. I have had the wound care nurse come evaluate that. She was started on some treatment. I am going to have home health care go out and evaluate and help treat this at home. DISCHARGE PHYSICAL EXAMINATION: Vital Signs: Today, vital signs are stable. HEENT: She is normocephalic and atraumatic. PERRLA. Throat clear. Lungs: Clear to auscultation and percussion without rhonchi, rales, or wheezes. Heart: Regular rate and rhythm without murmurs, gallops, or friction rubs. Abdomen: Soft. Active bowel sounds. No organomegaly or tenderness. She has no nausea now. Neurological: Exam is intact. She has no confusion. PLAN: We will send her home and then see her back in the office Friday or Friday.
== END 2017-02-14 13:39 | disposition home health service (06) | DRG 638 ==
LOC: ED 19:31 → EDIPHOLD 22:14 → 4N 02-08 12:36
PROVIDERS: ADMIT Emergency Medicine; ATTEND Emergency Medicine
DX: E11.649 Type 2 diabetes mellitus with hypoglycemia without coma (principal); E87.1 Hypo-osmolality and hyponatremia; L89.159 Pressure ulcer of sacral region, unspecified stage; E87.8 Other disorders of electrolyte and fluid balance, not elsewhere classified; M48.56XA Collapsed vertebra, not elsewhere classified, lumbar region, initial encounter for fracture; N39.0 Urinary tract infection, site not specified; M06.9 Rheumatoid arthritis, unspecified; E78.5 Hyperlipidemia, unspecified; I10 Essential (primary) hypertension; I25.10 Atherosclerotic heart disease of native coronary artery without angina pectoris; Z79.899 Other long term (current) drug therapy; Z79.4 Long term (current) use of insulin; Z79.83 Long term (current) use of bisphosphonates; Z79.84 Long term (current) use of oral hypoglycemic drugs; Z95.5 Presence of coronary angioplasty implant and graft; Z82.49 Family history of ischemic heart disease and other diseases of the circulatory system; Z91.128 Patient's intentional underdosing of medication regimen for other reason
CPT/HCPCS: 51702; 70450; 71010; 71020; 72100; 74022; 76700; 80048; 80053; 81001; 82550; 82805; 82948; 83605; 84443; 84484; 85025; 85610; 85730; 87040; 87088; 93005; 93010; 93306; 96365; 96366; 96367; 96368; 96375; C9113; G0480; J0696; J7042; 80324; 80345; 80346; 80349; 80353; 80358; 80361; 80365; 83992; 97116-GP; 97530-GP; S0164